=== PATIENT | female | born 1990 | race African-American/Black ===

== ENCOUNTER 2017-01-29 14:10 | Outpatient (CLI) | payer OTHER ==
[~2017-01-29] VITALS: Ht 160 cm; Wt 60.0 kg
[2017-01-29 14:27] VITALS: BP 116/56; PULSE 80; TEMP 98.5
[2017-01-29 14:45] VITALS: BP 92/59; PULSE 92
== END 2017-01-29 14:55 | disposition home or self-care (01) ==
LOC: EDSEX 14:10 → LDRO 14:10
DX: O47.03 False labor before 37 completed weeks of gestation, third trimester (principal); Z3A.28 28 weeks gestation of pregnancy
CPT/HCPCS: J0702

== ENCOUNTER 2017-01-30 14:27 | Outpatient (CLI) | payer OTHER ==
[~2017-01-30] VITALS: Ht 160 cm; Wt 59.9 kg
== END 2017-01-30 15:25 | disposition home or self-care (01) ==
LOC: LDRO 14:27 → EDSEX 14:27 → LDRO 15:25
DX: Z34.83 Encounter for supervision of other normal pregnancy, third trimester (principal); Z3A.28 28 weeks gestation of pregnancy
CPT/HCPCS: J0702

== ENCOUNTER 2017-02-19 16:48 | Inpatient (IN) | payer OTHER ==
[~2017-02-19] VITALS: Ht 162.6 cm; Wt 63.6 kg
[2017-04-05] MEDS ORDERED: PRENATAL (15:49)
[2017-04-05] MEDS ORDERED: VALTREX1 GM PO (15:49)
[2017-04-05] MEDS ORDERED: TUMS500 MG (15:49)
[2017-04-08] VITALS (36 sets, daily range): BP systolic 100–147; BP diastolic 58–85; PULSE 8–100; TEMP 97.6–98.1
[2017-04-08 09:08] LABS: BASO % 0.2 % (0.0-2.0); EOS % 0.3 % (0-4.0); GRAN # 5.8 (1.4-6.5); GRAN % 67.7 % (42.2-75.2); HEMATOCRIT 35.3 % (37.0-47.0); HEMOGLOBIN 12.4 g/dl (12.5-16.0); LYMPH # 2.2 (1.2-3.4); LYMPH % 26.1 % (20.0-51.0); MEAN CELL VOLUME 92 fl (80.0-100.0); MEAN CORPUSCULAR HEMOGLOBIN 32 pg (27.0-31.0); MEAN CORPUSCULAR HGB CONC 35 g/dl (33.0-37.0); MEAN PLATELET VOLUME 11.7 fl (7.4-10.4); MONO # 0.5 (0.1-0.6); MONO % 5.2 % (1.7-9.3); PLATELET COUNT 154 K/mm3 (130-400); RED BLOOD COUNT 3.83 M/mm3 (4.10-5.30); WHITE BLOOD COUNT 8.6 K/mm3 (4.8-10.8)
[2017-04-09 05:15] VITALS: BP 106/57; PULSE 72; TEMP 97.9
[2017-04-09 07:25] VITALS: BP 103/64; PULSE 77; TEMP 98.2
[2017-04-09] MEDS ORDERED: IBU800 M1 PO (09:34)
[2017-04-09 12:00] VITALS: BP 98/58; PULSE 69; TEMP 98.1
[2017-04-09 16:30] VITALS: BP 110/74; PULSE 74; TEMP 98.3
[2017-04-09 19:44] VITALS: BP 108/70; PULSE 68; TEMP 97.9
[2017-04-10 08:22] VITALS: BP 118/76; PULSE 70; TEMP 97.5
== END 2017-04-10 12:05 | disposition home or self-care (01) | DRG 775 ==
LOC: LDR 04-08 07:25 → OB 04-08 08:08 → LDR 04-08 08:08 → OB 04-08 17:00 → LDR 04-20 16:48
PROVIDERS: Student in an Organized Health Care Education/Training Program
PROC: 10E0XZZ Delivery of Products of Conception, External Approach (ICD-10-PCS; principal; 2017-04-08)
PROC: 3E033VJ Introduction of Other Hormone into Peripheral Vein, Percutaneous Approach (ICD-10-PCS; 2017-04-08)
DX: O36.5930 Maternal care for other known or suspected poor fetal growth, third trimester, not applicable or unspecified (principal); O43.193 Other malformation of placenta, third trimester; O99.824 Streptococcus B carrier state complicating childbirth; O35.8XX0 Maternal care for other (suspected) fetal abnormality and damage, not applicable or unspecified; Z3A.38 38 weeks gestation of pregnancy; Z37.0 Single live birth
CPT/HCPCS: J2540; J2590; J2795; J7060; J7120

== ENCOUNTER 2017-04-05 15:26 | Outpatient (CLI) | payer OTHER ==
[~2017-04-05] VITALS: Ht 160 cm; Wt 63.2 kg
[2017-04-05 15:38] VITALS: BP 109/72; PULSE 86; TEMP 98.2
[2017-04-05] MEDS ORDERED: VALTREX1 GM PO (15:49)
[2017-04-05] MEDS ORDERED: TUMS500 MG (15:49)
[2017-04-05] MEDS ORDERED: PRENATAL (15:49)
[2017-04-05 16:00] VITALS: BP 109/72; PULSE 86; TEMP 98.2
== END 2017-04-05 16:40 | disposition home or self-care (01) ==
LOC: LDR 15:26 → LDRO 15:26 → LDR 15:30 → LDRO 16:40
DX: Z34.83 Encounter for supervision of other normal pregnancy, third trimester (principal); Z3A.38 38 weeks gestation of pregnancy
CPT/HCPCS: OP